=== PATIENT | female | born 1960 | race Caucasian/White ===

== ENCOUNTER 2016-11-18 08:36 | Day surgery (SDC) | payer BC ==
[2016-11-17 15:38] VITALS: BMI 40.3
[~2016-11-18] VITALS: Ht 157.5 cm; Wt 100.0 kg
[2016-11-18] VITALS (9 sets, daily range): BP systolic 121–195; BP diastolic 63–80; PULSE 69–78; RESP 14–20; Ht 157.5 cm; Wt 100.0 kg
[~2016-11-18 08:36] MED LIST: AMLO-15 PO; BENA40TA54 PO; CEFAZOLIN 2 GM/50 ML (PMX) 50 ML IVPB SCH; DIPH25CA6 PO; HYDR25TA6 PO; IBUPROPHEN; METF500T4 PO; RANI150T5 PO; SOD CHLORIDE 0.9% 1,000 ML IV SCH
--- NOTE | 2016-11-18 10:10 | RADRPT ---
PROCEDURE: Chest Radiograph. CLINICAL INDICATION: Preop TECHNIQUE: Single frontal chest radiograph. COMPARISON: None available FINDINGS: Heart size is within normal limits. There is mild bibasilar atelectasis. No infiltrate or effusio n is seen. The bones are intact. IMPRESSION: 1. No evidence of acute cardiopulmonary disease. 2. Mild bibasilar atelectasis. RPTAT: AA .Froylan Haywood MD, MD Date Time Electronically viewed and signed by .Froylan Haywood MD, MD on 11/18/2016 10:10 .B/
[2016-11-18] MEDS ORDERED: BUPIVACAINE 0.25% (MPF) 30 ML INJ ONE (10:36)
[2016-11-18] MEDS ORDERED: METF1000 PO (10:38)
[2016-11-18] MEDS ORDERED: HYD25 PO (10:38)
[2016-11-18] MEDS ORDERED: LIDOCAINE 2% (SDV) 5 ML INJ ONE (10:39)
[2016-11-18] MEDS ORDERED: MEPERIDINE 100 MG INJ ONE (10:39)
[2016-11-18] MEDS ORDERED: CEFAZOLIN 1 GM INJ ONE (10:39)
[2016-11-18] MEDS ORDERED: PROPOFOL 20 ML ONE (10:39)
[2016-11-18] MEDS ORDERED: METOCLOPRAMIDE 10 MG INJ ONE (10:40)
[2016-11-18] MEDS ORDERED: ONDANSETRON 4 MG INJ ONE (10:40)
[2016-11-18] MEDS ORDERED: METO-429 PO (10:48)
[2016-11-18] MEDS ORDERED: AMLO-147 PO (10:48)
[2016-11-18] MEDS ORDERED: MIDAZOLAM 1 MG/ML 2 ML INJ IV PRN (11:00)
[2016-11-18] MEDS ORDERED: ONDANSETRON 4 MG INJ IV PRN (11:00)
[2016-11-18] MEDS ORDERED: MEPERIDINE 25 MG INJ IV PRN (11:00)
[2016-11-18] MEDS ORDERED: METOCLOPRAMIDE 10 MG INJ IV PRN (11:00)
[2016-11-18] MEDS ORDERED: DIPHENHYDRAMINE 50 MG INJ IV PRN (11:00)
[2016-11-18] MEDS ORDERED: morphine (1 MG/ML) 10ML SYRINGE IV PRN ×2 (11:00)
[2016-11-18] MEDS ORDERED: FENTAnyl 50 MCG/ML VIAL IV PRN ×2 (11:00)
[2016-11-18] MEDS ORDERED: HYDROCODONE/APAP (5/325) TAB PO ONE (11:30)
--- NOTE | 2016-11-18 11:44 | OPR ---
DATE OF OPERATION: 11/18/2016 INDICATION: This is a 56-year-old female with a large left gluteal mass. She requests surgical exc ision. Risks, alternatives, benefits, and personnel were discussed with the patient. The patient e xpresses understanding and consents to the operation. PREOPERATIVE DIAGNOSIS: Large left gluteal mass. POSTOPERATIVE DIAGNOSIS: Large left gluteal mass. OPERATION PERFORMED: 1. Excision of large left gluteal mass with 11 cm size incision and 9 x 5 cm size mass. 2. Localized adjacent tissue transfer with the use of skin flaps with a 44 square cm defect. 3. Therapeutic [place] [address]. SURGEON: Mari Cobb MD SPECIMEN: Large left gluteal mass. COMPLICATIONS: None. ANESTHESIA: General. DESCRIPTION OF PROCEDURE: The patient was taken to the OR and prepped and draped in the usual ster ile fashion. Surgical timeout was performed. IV antibiotics were given. Incision was made over th e large left gluteal mass in a transverse incision. Dissection cautery was carried down to the mass . Due to adhesions to the skin, the skin and mass were resected en bloc with a 10 blade. Dis section cautery was carried down to circumferentially excise the mass. There was good hemostasis. Large tissue defect was made with approximately 44 square cm. This was closed with bilateral skin f laps. Skin flaps were raise on each side. Multilayer closure was performed with interrupted 3-0 Vi cryl and skin barby. Local anesthesia was injected. Dry dressings were applied. Dictated By: MARI ELLSWORTH/DEVANG Conf#: [id number] DID#: [id number]
--- NOTE | 2016-11-18 12:37 | RADRPT ---
Vent Rate: 72 bpm RR Interval: 0 msec MD Interval: 162 msec QRS Duration: 92 msec QT Interval: 426 msec QTC Interval: 466 msec P-R-T [place]: 63 - -6 - 61 degrees Normal sinus rhythm Low voltage QRS Cannot rule out Anterior infarct , age undetermined Abnormal ECG Electronically Signed By: Chepe Carranza [id number]
== END 2016-11-18 12:50 | disposition home or self-care (01) ==
LOC: SDS 08:36
PROVIDERS: ATTEND Surgery
DX: L72.0 Epidermal cyst (principal); I10 Essential (primary) hypertension; E11.9 Type 2 diabetes mellitus without complications; E66.01 Morbid (severe) obesity due to excess calories; Z68.41 Body mass index [BMI] 40.0-44.9, adult
CPT/HCPCS: 14000; 71010; 82962; 88307; 93005; J0690; J2175; J2405; J2765; Z7512; Z7610